=== PATIENT | male | born 1935 | race Caucasian/White ===

== ENCOUNTER 2018-09-01 10:40 | Day surgery (SDC) | payer MEDICARE ==
[~2018-09-01] VITALS: Ht 180.3 cm; Wt 97.5 kg
[2018-09-01] MEDS ORDERED: COCAINE HCL 4% 2 ML SYR ONE (10:49)
[2018-09-01] MEDS ORDERED: LIDOCAINE/EPI 1%-1:100,000 (XYLOCAINE) 20ML ONE (10:50)
[2018-09-01] MEDS ORDERED: MUPIROCIN 2% OINT 22 GM (BACTROBAN) TUBE ONE (10:50)
[2018-09-01] MEDS ORDERED: PHENYLEPHRINE 0.5% NASAL SPR (NEO-SYNEPHRINE) REG ONE (10:50)
[2018-09-01 10:55] VITALS: BP 144/76
[2018-09-01] MEDS ORDERED: fentaNYL INJECTION 100 MCG/2 ML AMP ONE (11:04)
[2018-09-01] MEDS ORDERED: proPOfol 200 MG/20 ML (DIPRIVAN) VIAL IV ONE (11:06)
[2018-09-01] MEDS ORDERED: LIDOCAINE PF 2% 5 ML (XYLOCAINE) VIAL ONE (11:06)
[2018-09-01] MEDS ORDERED: SUCCINYLCHOLINE INJ 100 MG/5 ML SYR ONE (11:06)
[2018-09-01] MEDS ORDERED: ONDANSETRON 4 MG/2 ML (SDV) Z0FRAN ONE (11:07)
--- NOTE | 2018-09-01 11:08 | Progress Note-Pre Operative ---
Pre-Operative Progress Note H&P Reviewed The H&P was reviewed, patient examined and no changes noted. Date Seen by Provider: Sep 01, 2018 Time Seen by Provider: 11:00 Date H&P Reviewed: Sep 01, 2018 Time H&P Reviewed: 11:00 Pre-Operative Diagnosis: Left Posterior Epistaxis LINDY MAGUIRE MD Sep 01, 2018 11:08 am
[2018-09-01] MEDS ORDERED: SEVOFLURANE (ULTANE) 15 ML INHAL SOLN ONE ×4 (11:27→12:05)
[2018-09-01] MEDS ORDERED: DEXAMETHASONE 10 MG/ML (DECADRON) 1 ML VIAL ONE (11:27)
--- NOTE | 2018-09-01 11:46 | Progress Note-Post Operative ---
Post-Operative Progess Note Surgeon (s)/General Passenger Agent (s) Surgeon LINDY MAGUIRE MD General Passenger Agent n/a Pre-Operative Diagnosis Left Posterior Epistaxis Post-Operative Diagnosis same Post-Op Procedure Note Date of Procedure: Sep 01, 2018 Name of Procedure Performed: Endoscopic Repair of Left Posterior Epiestaxis Description & Findings Description and Findings: n/a Anesthesia Type get Estimated Blood Loss minimal Packing none. Specimen(s) collected/removed none LNIDY MAGUIRE MD Sep 01, 2018 11:46 am
[2018-09-01] MEDS ORDERED: ACETAMINOPHEN 325 MG TABLET PO ONE (12:00)
[2018-09-01] MEDS ORDERED: HYDROcodone/APAP 5 MG/325 MG (LORTAB) TAB PO ONE (12:00)
[2018-09-01 12:45] VITALS: BP 140/87
[2018-09-01 12:50] VITALS: BP 140/87
[2018-09-01 13:15] VITALS: BP 149/97
[2018-09-01] MEDS ORDERED: WARF-48 PO (13:30)
[2018-09-01] MEDS ORDERED: METO-395 PO (13:30)
[2018-09-01] MEDS ORDERED: CLON0.1T PO (13:30)
[2018-09-01] MEDS ORDERED: MULT-974 PO (13:30)
[2018-09-01] MEDS ORDERED: LISI-552 PO (13:30)
[2018-09-01] MEDS ORDERED: HYDR25TA4 PO (13:30)
[2018-09-01] MEDS ORDERED: ROSU10TA PO (13:30)
[2018-09-01] MEDS ORDERED: DILT120C53 PO (13:33)
[2018-09-01] MEDS ORDERED: METO100T12 PO (13:33)
[2018-09-01] MEDS ORDERED: CEPH-507 PO (13:36)
[2018-09-01] MEDS ORDERED: HYDR-3812 PO (13:36)
--- NOTE | 2018-09-01 13:40 | Anesthesia-General Post-Op ---
General Patient Condition Mental Status/LOC: Same as Preop Cardiovascular: Satisfactory Nausea/Vomiting: Absent Respiratory: Satisfactory Pain: Controlled Complications: Absent Post Op Complications Complications None Follow Up Care/Instructions Patient Instructions None needed. Anesthesia/Patient Condition Patient Condition Patient is doing well, no complaints, stable vital signs, no apparent adverse anesthesia problems. No complications reported per nursing. SHANNAN LOPEZ CRNA Sep 01, 2018 13:40
[2018-09-01 13:45] VITALS: BP 141/91
[2018-09-01] MEDS ORDERED: LACTATED RINGERS 1,000 ML IV PRN (14:49)
== END 2018-09-01 14:10 | disposition home or self-care (01) ==
LOC: SDC 10:40
PROVIDERS: ATTEND Otolaryngology Otolaryngology/Facial Plastic Surgery
DX: R04.0 Epistaxis (principal); I48.91 Unspecified atrial fibrillation; I25.10 Atherosclerotic heart disease of native coronary artery without angina pectoris; I10 Essential (primary) hypertension; Z79.01 Long term (current) use of anticoagulants; Z79.899 Other long term (current) drug therapy; Z87.891 Personal history of nicotine dependence